=== PATIENT | male | born 1970 | race Caucasian/White ===

== ENCOUNTER → 2017-05-08 | Outpatient (CLI) | payer OTHER | LOC: M.RAD 12:51 | DX: M40.46 Postural lordosis, lumbar region (principal); M54.16 Radiculopathy, lumbar region ==

== ENCOUNTER 2018-09-21 10:47 | Emergency (ER) | payer OTHER ==
[~2018-09-21] VITALS: Ht 177.8 cm; Wt 76.2 kg
[2018-09-21] MEDS ORDERED: OMEPRAZOLE10 MG PO (10:59)
[2018-09-21] MEDS ORDERED: ACETAMINOPHEN-1 EAC1 PO (12:25)
[2018-09-21] MEDS ORDERED: AUGMENTIN 500-1 EACH PO (12:29)
[2018-09-21 12:53] VITALS: BP 135/80
== END 2018-09-21 12:56 | disposition home or self-care (01) ==
LOC: M.ERS 10:47
DX: S61.012A Laceration without foreign body of left thumb without damage to nail, initial encounter (principal); S61.422A Laceration with foreign body of left hand, initial encounter; J45.909 Unspecified asthma, uncomplicated; Z88.1 Allergy status to other antibiotic agents; W25.XXXA Contact with sharp glass, initial encounter; Y93.89 Activity, other specified; Y92.091 Bathroom in other non-institutional residence as the place of occurrence of the external cause; Y99.8 Other external cause status